=== PATIENT | female | born 1995 | race American Indian/Alaskan Native ===

== ENCOUNTER 2017-04-29 00:33 | Emergency (ER) | payer SELFPAY ==
[2017-04-29 00:59] VITALS: BP 127/86
[2017-04-29] MEDS ORDERED: BOOSTRIX IM ONE (03:20)
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
== END 2017-04-29 03:30 | disposition home or self-care (01) ==
LOC: ED 00:33
DX: S01.511A Laceration without foreign body of lip, initial encounter (principal); Y09 Assault by unspecified means; Y93.89 Activity, other specified; Y92.89 Other specified places as the place of occurrence of the external cause; Y99.8 Other external cause status
CPT/HCPCS: 90471; 90715; 99282